=== PATIENT | female | born 1975 | race Two or more races ===

== ENCOUNTER 2024-05-31 19:46 | Emergency (ER) | payer BC ==
[~2024-05-31] VITALS: Ht 162.6 cm; Wt 89.3 kg
[2024-05-31 20:45] LABS: Urine Bacteria FEW /hpf (None Seen); Urine Blood 2+ /uL (Negative); Urine Clarity Clear (Clear); Urine Color Light-Yellow (Yellow); Urine Protein, UAD Negative (Negative); Urine Specific Gravity 1.022 (1.001-1.035); Urine Urobilinogen Normal (Negative); Urine WBC 1 /hpf (0 - 5); Urine pH 5.5 (5.0-9.0)
[2024-05-31 20:48] LABS: Basophils # (auto) 0.1 10 ^3/uL (0-0.2); Basophils % (auto) 0.8 % (0.0-2.0); Eosinophils # (auto) 0.2 10 ^3/uL (0-0.8); Eosinophils % (auto) 1.2 % (0.0-7.0); Hemoglobin 12.7 g/dL (12.2-16.2); Lymphocytes # (auto) 3.9 10 ^3/uL (0.4-5.4); Lymphocytes % (auto) 28.8 % (10.0-50.0); Mean Corpuscular Hemoglobin 30.5 pg (28.0-32.0); Mean Corpuscular Hgb Conc. 33.5 g/dL (32.0-36.0); Mean Corpuscular Volume 91.1 fL (80.0-100.0); Monocytes # (auto) 1.1 10 ^3/uL (0-1.3); Monocytes % (auto) 8.3 % (0.0-12.0); Neutrophils # (auto) 8.3 10 ^3/uL (1.6-8.6); Neutrophils % (auto) 60.9 % (37.0-80.0); Nucleated Red Blood Cells % 0.1 %; Platelet Count (auto) 384 10^3/uL (140-450); Red Blood Cells 4.17 10^6/uL (4.0-5.20); Red Cell Distribution Width 15.2 % (11.8-14.3); White Blood Cell 13.6 10^3/uL (4.4-10.8)
[2024-05-31 20:59] LABS: Albumin 4.8 g/dL (3.2-4.8); Alkaline Phosphatase 59 U/L (46-116); Anion Gap 8 (5-15); Aspartate Aminotransferase 9 U/L (13-40); BUN/Creatinine Ratio 23.3 (10.0-20.0); Bilirubin, Total 0.3 mg/dL (0.2-1.0); Blood Urea Nitrogen 24 mg/dL (9-23); Calcium 9.7 mg/dL (8.7-10.4); Carbon Dioxide 21 mmol/L (20-30); Chloride 108 mmol/L (98-107); Glucose 92 mg/dL (74-106); Sodium 137 mmol/L (136-145); Total Protein 7.6 g/dL (5.7-8.2)
[2024-05-31 21:58] LABS: Alanine Aminotransferase < 9 U/L (7-40)
[2024-05-31] MEDS: MAGNESIUM SULFATE 1GM/100ML 100 ML IV SCH (23:15)
[2024-05-31] MEDS ORDERED: ACET-1304 PO (23:55)
[2024-05-31] MEDS ORDERED: IBUP-1456 PO (23:55)
[2024-05-31] MEDS ORDERED: ZOFR4T PO (23:55)
[2024-05-31] MEDS ORDERED: TAMS1CAP25 PO (23:55)
[2024-06-01] MEDS: KETOROLAC TROMETH 30 MG/ML 1ML VIAL IV ONE (00:13)
[2024-06-01] MEDS: ONDANSETRON HCL 4 MG/2 ML VIAL IV ONE (00:14)
[2024-06-01] MEDS: TAMSULOSIN HYDROCHLORIDE 0.4 MG CAP PO ONE (00:14)
[2024-06-01] MEDS: MORPHINE SULFATE 4 MG/ML SYR/VIAL IV ONE (00:14)
[2024-06-01] MEDS: SODIUM CHLORIDE 0.9% 1,000 ML IV ONE (00:15)
[2024-06-01 00:18] VITALS: TEMP 98.6; O2SAT 100
[2024-06-01 00:44] VITALS: BP 136/87; PULSE 88; RESP 18
== END 2024-06-01 01:31 | disposition home or self-care (01) ==
LOC: ER 19:46
DX: N20.1 Calculus of ureter (principal); R10.2 Pelvic and perineal pain; I10 Essential (primary) hypertension; Z98.890 Other specified postprocedural states
CPT/HCPCS: 36415; 74176; 80053; 81001; 83605; 84702; 85025; 96361; 96374; 96375; 99285; J1885; J2270; J2405; J7030